=== PATIENT | male | born 1985 | race Caucasian/White ===

== ENCOUNTER 2020-08-27 02:44 | Emergency (ER) | payer MEDICAID ==
[~2020-08-27] VITALS: Ht 177.8 cm; Wt 116.0 kg
[2020-08-27] MEDS ORDERED: HYDROCODONE/ACETAMINOPHEN 5/325MG TABLET PO ONE (04:00)
[2020-08-27 04:03] VITALS: BP 150/99
== END 2020-08-27 04:49 | disposition home or self-care (01) ==
LOC: ER 02:44
DX: N45.1 Epididymitis (principal); I10 Essential (primary) hypertension
CPT/HCPCS: 99283